=== PATIENT | female | born 1990 | race Caucasian/White ===

== ENCOUNTER 2016-11-18 00:16 | Outpatient (CLI) | payer OTHER ==
[~2016-11-18 00:16] MED LIST: KEFLEX500 MG PO; MACROBID100 MG PO; PRENATAL TABLE1 EAC3 PO; ZOFRAN ODT4 MG PO
[2016-11-18 00:27] VITALS: BP 124/74
[2016-11-18 02:42] LABS: BILIRUBIN NEGATIVE; BLOOD NEGATIVE; COLOR YELLOW ((YELLOW)); GLUCOSE (STRIP) NEGATIVE; KETONES NEGATIVE; LEUKOCYTES NEGATIVE; NITRITE NEGATIVE; PROTEIN (STRIP) NEGATIVE; UROBILINOGEN 0.2 MG/DL (0.2-1.0)
[2016-11-18 02:43] LABS: ADD MIUA? NO; UCUL ADDED? NO
[2016-11-18 04:54] LABS: CANDIDA DNA PROBE NEGATIVE; GARDNERELLA DNA PROBE NEGATIVE; INTERNAL CONTROL VALID? YES
== END 2016-11-18 06:55 | disposition home or self-care (01) ==
LOC: LDRP-OP → 2WEST 00:17 → LDRP-OP 03-08 17:39
PROVIDERS: Advanced Practice Midwife
DX: O26.892 Other specified pregnancy related conditions, second trimester (principal); R10.31 Right lower quadrant pain; R10.32 Left lower quadrant pain; Z3A.28 28 weeks gestation of pregnancy; O34.219 Maternal care for unspecified type scar from previous cesarean delivery; Z87.891 Personal history of nicotine dependence
CPT/HCPCS: 59025; 81003; 87077; 87086; 87186; 87480; 87510; 87660; G0378

== ENCOUNTER 2017-01-14 14:54 | Outpatient (CLI) | payer OTHER ==
[~2017-01-14] VITALS: Ht 165.1 cm; Wt 86.4 kg
[2017-01-14 15:21] VITALS: BP 131/70
[2017-01-14 16:18] LABS: POINT-OF-CARE METER ID UU14188576
[2017-01-14 17:02] LABS: AMPHETAMINES QUANT VALUE 0 NG/ML; BARBITUATES QUANT VALUE 0 NG/ML; BENZODIAZEPINES QUANT VALUE 0 NG/ML; BENZODIAZEPINES, URINE SCREEN Negative (200 ng/mL); MARIJUANA QUANT VALUE 0 NG/ML; OPIATES QUANTITATIVE VALUE 0 NG/ML; PHENCYCLIDINE QUANT VALUE 0 NG/ML
== END 2017-01-14 16:35 | disposition home or self-care (01) ==
LOC: LDRP-OP → 2WEST 14:57 → LDRP-OP 03-08 07:18
PROVIDERS: Midwife; Obstetrics & Gynecology
DX: O26.893 Other specified pregnancy related conditions, third trimester (principal); O99.820 Streptococcus B carrier state complicating pregnancy; O99.810 Abnormal glucose complicating pregnancy; R73.01 Impaired fasting glucose; Z3A.36 36 weeks gestation of pregnancy; O34.219 Maternal care for unspecified type scar from previous cesarean delivery; Z91.19 Patient's noncompliance with other medical treatment and regimen
CPT/HCPCS: 59025; 80306 90; 82948; G0378

== ENCOUNTER 2017-02-04 08:41 | Inpatient (IN) | payer OTHER ==
[~2017-02-04] VITALS: Ht 165.1 cm; Wt 90.0 kg
[2017-02-04] VITALS (8 sets, daily range): BP systolic 120–132; BP diastolic 68–81
[~2017-02-04 08:41] MED LIST changes: +ZANTAC150 MG PO
[2017-02-04 10:32] LABS: BASOPHIL COUNT 0.1 K/uL (0-0.1); EOSINOPHIL (%) 0.9 % (0-5); EOSINOPHIL COUNT 0.1 K/uL (0-0.3); HEMATOCRIT 30.5 % (36.0-46.0); IMMATURE GRANULOCYTE (%) 2.2 % (0.0-0.7); IMMATURE GRANULOCYTE COUNT 0.2 K/uL; INSTRUMENT ABS NEUTROPHIL CT 6.6 K/uL; MCHC 30.8 G/DL (30.0-36.0); MEAN PLAT.VOLUME 10.5 uM^3 (9.5-12.4); MONOCYTE (%) 5.7 % (3-12); MONOCYTE COUNT 0.5 K/uL (0-0.8); NEUTROPHIL (%) 69.8 % (45-76); NEUTROPHIL COUNT 6.6 K/uL (1.8-6.4); PLATELET COUNT 259 K/uL (156-360); RBC DIS.WIDTH-CV 15.4 % (11.8-14.6); RBC DIS.WIDTH-SD 42.7 % (39-53); RED BLOOD COUNT 3.91 M/uL (3.80-5.20); WHITE BLOOD COUNT 9.5 K/uL (4.1-10.2)
[2017-02-04] MEDS ORDERED: ENDOCET 5-3251 EACH PO (11:41)
[2017-02-04] MEDS ORDERED: IBUPROFEN800 MG PO (11:41)
[2017-02-05 03:00] VITALS: BP 109/57
[2017-02-05 07:33] LABS: EOSINOPHIL (%) 0.1 % (0-5); HEMATOCRIT 26.5 % (36.0-46.0); IMMATURE GRANULOCYTE (%) 1.4 % (0.0-0.7); IMMATURE GRANULOCYTE COUNT 0.2 K/uL; INSTRUMENT ABS NEUTROPHIL CT 9.5 K/uL; LYMPHOCYTE COUNT 2.5 K/uL (1.0-2.8); MCH 24.2 PG (29.0-34.0); MCHC 30.9 G/DL (30.0-36.0); MCV 78.2 FL (83-99); MEAN PLAT.VOLUME 10.1 uM^3 (9.5-12.4); MONOCYTE (%) 7.3 % (3-12); NEUTROPHIL (%) 72.2 % (45-76); NEUTROPHIL COUNT 9.5 K/uL (1.8-6.4); PLATELET COUNT 260 K/uL (156-360); RBC DIS.WIDTH-CV 15.2 % (11.8-14.6); RBC DIS.WIDTH-SD 42.7 % (39-53); RED BLOOD COUNT 3.39 M/uL (3.80-5.20)
[2017-02-05 07:34] LABS: WHITE BLOOD COUNT 13.2 K/uL (4.1-10.2)
[2017-02-05 07:47] VITALS: BP 112/56
[2017-02-05 11:00] VITALS: BP 112/77
[2017-02-05 15:00] VITALS: BP 111/66
[2017-02-05 19:50] VITALS: BP 116/62
[2017-02-05 23:00] VITALS: BP 120/68
[2017-02-06 03:00] VITALS: BP 116/57
[2017-02-06 11:19] VITALS: BP 115/71
[2017-02-06 15:25] VITALS: BP 144/61
[2017-02-06 23:59] VITALS: BP 140/78
[2017-02-07 07:25] VITALS: BP 120/80
== END 2017-02-07 15:26 | disposition home or self-care (01) | DRG 766 ==
LOC: 2WEST 08:41 → 2SOUTH 10:17 → 2WEST 11:18 → 2SOUTH 15:36 → 2WEST 02-07 15:26
PROVIDERS: Obstetrics & Gynecology
PROC: 10D00Z1 Extraction of Products of Conception, Low, Open Approach (ICD-10-PCS; principal; 2017-02-04)
DX: O99.824 Streptococcus B carrier state complicating childbirth (principal); O34.211 Maternal care for low transverse scar from previous cesarean delivery; Z37.0 Single live birth; Z3A.39 39 weeks gestation of pregnancy; M54.9 Dorsalgia, unspecified; O12.04 Gestational edema, complicating childbirth; D50.9 Iron deficiency anemia, unspecified; O99.013 Anemia complicating pregnancy, third trimester; O99.89 Other specified diseases and conditions complicating pregnancy, childbirth and the puerperium
CPT/HCPCS: 85025; 86900; 86901; J0690; J1100; J2274; J2405; J7120